=== PATIENT | male | born 1965 | race Caucasian/White ===

== ENCOUNTER 2016-07-28 14:54 | Emergency (ER) | payer MEDICAID ==
[2016-07-28] MEDS ORDERED: NS 1,000 ML IV ONE (15:31)
--- NOTE | 2016-07-28 15:33 | EDPHY ---
H & P Stated Complaint: uncontrollable blood sugars, cramping, numbness in toes Time Seen by Provider: 07/28/16 15:18 HPI/ROS: CHIEF COMPLAINT: Low sugar HISTORY OF PRESENT ILLNESS: Patient is a 50-year-old man with a history of diabetes type 2 who takes metformin who recently moved to [place]. He states that his sugars have been high lately in the 400s. He decided to take a dose of his mom's insulin this morning. He states that he has had trouble with high sugar since he had pancreatitis 2 years ago. He has not followed up with his doctor. He is supposed to be taking glipizide as well has a cholesterol medication but does not. He states that at work he became very grumpy and his coworkers told him to check his sugar. He used his last test strip and found that his blood sugar was 40. He ate a piece of cake and then came to the emergency department. He denies nausea or abdominal pain. He has a mild headache and states that he has cramping in his feet. REVIEW OF SYSTEMS: Constitutional: See HPI EENTM: denies: blurred vision, double vision, nose congestion Respiratory: denies: cough, shortness of breath Cardiac: denies: chest pain, irregular heart rate, lightheadedness, palpitations Gastrointestinal/Abdominal: denies: abdominal pain, diarrhea, nausea, vomiting, blood streaked stools Genitourinary: denies: dysuria, frequency, hematuria, pain Musculoskeletal: denies: joint pain, muscle pain Skin: denies: lesions, rash, jaundice, bruising Neurological: denies: headache, numbness, paresthesia, tingling, dizziness, weakness Hematologic/Lymphatic: denies: blood clots, easy bleeding, easy bruising Immunologic/allergic: denies: HIV/AIDS, transplant EXAM: GENERAL: Well-appearing, well-nourished and in no acute distress. HEAD: Atraumatic, normocephalic. EYES: Pupils equal round and reactive to light, extraocular movements intact, sclera anicteric, conjunctiva are normal. ENT: TMs normal, nares patent, oropharynx clear without exudates. Moist mucous membranes. NECK: Normal range of motion, supple without lymphadenopathy or JVD. LUNGS: Breath sounds clear to auscultation bilaterally and equal. No wheezes rales or rhonchi. HEART: Regular rate and rhythm without murmurs, rubs or gallops. ABDOMEN: Soft, nontender, normoactive bowel sounds. No guarding, no rebound. No masses appreciated. BACK: No CVA tenderness, no spinal tenderness, step-offs or deformities EXTREMITIES: Normal range of motion, no pitting or edema. No clubbing or cyanosis. NEUROLOGICAL: Cranial nerves II through XII grossly intact. Normal speech, normal gait. 5/5 strength, normal movement in all extremities, normal sensation PSYCH: Normal mood, normal affect. SKIN: Warm, dry, normal turgor, no visible rashes or lesions. Source: Patient Exam Limitations: No limitations - Personal History Current Tetanus Diphtheria and Acellular Pertussis (TDAP): No - Medical/Surgical History Hx Asthma: No Hx Chronic Respiratory Disease: No Hx Diabetes: Yes Hx Cardiac Disease: No Hx Renal Disease: No Hx Cirrhosis: No Hx Alcoholism: No Hx HIV/AIDS: No Hx Splenectomy or Spleen Trauma: No Other PMH: diabetes, pancreatitis, CHI 1993 - Family History Significant Family History: No pertinent family hx - Social History Smoking Status: Former smoker Alcohol Use: Sober Drug Use: None Constitutional: Initial Vital Signs Temperature (C) 36.8 C 07/28/16 14:56 Heart Rate 82 07/28/16 14:56 Respiratory Rate 18 07/28/16 14:56 Blood Pressure 125/86 H 07/28/16 14:56 O2 Sat (%) 94 07/28/16 14:56 O2 Delivery Mode Room Air Allergies/Adverse Reactions: No Known Allergies Allergy (Unverified 07/28/16 14:57) Home Medications: Medication Instructions Recorded Blood Sugar Diagnostic [Accu-Chek 1 each MC TID #120 strip 07/28/16 Guide Test Strip] GLIPIZIDE 07/28/16 metFORMIN HCL 07/28/16 Medical Decision Making ED Course/Re-evaluation: 5:00 p.m. the patient is feeling much better after hydration. His electrolytes look good. His glucose is slightly elevated. I will refer him to a retanned leather roller here to help evaluate whether he needs to be on insulin or oral anti-hyperglycemic. The patient understands and agrees with this plan. He is requesting a prescription for test strips. Differential Diagnosis: Partial list of the Differential diagnosis considered include but were not limited to; diabetes, hyperglycemia, hypoglycemia, dehydration, accidental overdose and although unlikely based on the history and physical exam, I also considered electrolyte abnormality, infection. I discussed these differential diagnoses and the plan with the patient as well as the usual and expected course. The patient understands that the diagnosis is provisional and that in medicine we are not always correct and that further workup is often warranted. Usual and customary warnings were given. All of the patient's questions were answered. The patient was instructed to return to the emergency department should the symptoms at all worsen or return, otherwise to followup with the physician as we discussed. - Data Points Laboratory Results: Laboratory Results 07/28/16 15:45 07/28/16 15:31 07/28/16 07/28/16 15:45 15:31 WBC 9.00 10^3/uL 10^3/uL (3.80-9.50) RBC 4.95 10^6/uL 10^6/uL (4.40-6.38) Hgb 15.1 g/dL g/dL (13.7-17.5) Hct 43.1 % % (40.0-51.0) MCV 87.1 fL fL (81.5-99.8) MCH 30.5 pg pg (27.9-34.1) MCHC 35.0 g/dL g/dL (32.4-36.7) RDW 12.8 % % (11.5-15.2) Plt Count 255 10^3/uL 10^3/uL (150-400) MPV 9.3 fL fL (8.7-11.7) Neut % (Auto) 53.3 % % (39.3-74.2) Lymph % (Auto) 37.4 % % (15.0-45.0) [place] % (Auto) 6.7 % % (4.5-13.0) Eos % (Auto) 1.4 % % (0.6-7.6) Baso % (Auto) 0.6 % % (0.3-1.7) Nucleat RBC Rel Count 0.0 % % (0.0-0.2) Absolute Neuts (auto) 4.80 10^3/uL 10^3/uL (1.70-6.50) Absolute Lymphs (auto) 3.37 10^3/uL H 10^3/uL (1.00-3.00) Absolute Monos (auto) 0.60 10^3/uL 10^3/uL (0.30-0.80) Absolute Eos (auto) 0.13 10^3/uL 10^3/uL (0.03-0.40) Absolute Basos (auto) 0.05 10^3/uL 10^3/uL (0.02-0.10) Absolute Nucleated RBC 0.00 10^3/uL 10^3/uL (0-0.01) Immature Gran % 0.6 % % (0.0-1.1) Immature Gran # 0.05 10^3/uL 10^3/uL (0.00-0.10) Sodium 140 mEq/L mEq/L (134-144) Potassium 4.0 mEq/L mEq/L (3.5-5.2) Chloride 106 mEq/L mEq/L (97-110) Carbon Dioxide 18 mEq/l L mEq/l (22-31) Anion Gap 16 mEq/L mEq/L (8-16) BUN 17 mg/dL mg/dL (7-23) Creatinine 0.7 mg/dL mg/dL (0.7-1.3) Estimated GFR > 60 Glucose 226 mg/dL H mg/dL (70-100) Calcium 9.7 mg/dL mg/dL (8.5-10.4) Magnesium 1.7 mg/dL mg/dL (1.6-2.3) Medications Given: Discontinued Medications Sodium Chloride (Ns) 1,000 mls @ 0 mls/hr IV ONCE ONE; Wide Open PRN Reason: Protocol Stop: 07/28/16 15:32 Last Admin: 07/28/16 15:55 Dose: 1,000 mls Departure - Departure Disposition: Home, Routine, Self-Care Clinical Impression: Hypoglycemia Condition: Fair Instructions: Hypoglycemia in a Person with Diabetes (ED) Referrals: NONE *PRIMARY CARE P,. [Primary Care Provider] - As per Instructions Sana Escamilla MD [Medical Doctor] - As per Instructions Prescriptions: Blood Sugar Diagnostic [Accu-Chek Guide Test Strip] 1 each MC TID #120 strip
[2016-07-28 15:47] LABS: % IMMATURE GRANULYOCYTES 0.6 % (0.0-1.1); ABSOLUTE IMMATURE GRANULOCYTES 0.05 10^3/uL (0.00-0.10); ADD DIFF? NO; ADD MORPH? NO; ADD SCAN? NO; ATYPICAL LYMPHOCYTE FLAG 10 (0-99); FRAGMENT RBC FLAG 0 (0-99); HEMATOCRIT 43.1 % (40.0-51.0); HEMOGLOBIN 15.1 g/dL (13.7-17.5); LEFT SHIFT FLG 0 (0-99); LIPEMIA HEMOLYSIS FLAG 90 (0-99); MEAN CELL HEMOGLOBIN 30.5 pg (27.9-34.1); MEAN CELL VOLUME 87.1 fL (81.5-99.8); MEAN PLATELET VOLUME 9.3 fL (8.7-11.7); PLATELET CLUMPS FLAG 10 (0-99); PLATELET COUNT 255 10^3/uL (150-400); RED BLOOD CELL COUNT 4.95 10^6/uL (4.40-6.38); RED CELL DISTRIBUTION WIDTH 12.8 % (11.5-15.2)
[2016-07-28 16:46] LABS: ANION GAP 16 mEq/L (8-16); CALCIUM 9.7 mg/dL (8.5-10.4); CARBON DIOXIDE 18 mEq/l (22-31); CHLORIDE 106 mEq/L (97-110); CREATININE 0.7 mg/dL (0.7-1.3); GLOMERULAR FILTRATION RATE > 60; GLUCOSE 226 mg/dL (70-100); MAGNESIUM 1.7 mg/dL (1.6-2.3); SODIUM 140 mEq/L (134-144)
[2016-07-28 17:50] VITALS: BP 111/72; PULSE 74; RESP 20; TEMP 98.1; O2SAT 96
== END 2016-07-28 17:50 | disposition home or self-care (01) ==
DX: E11.649 Type 2 diabetes mellitus with hypoglycemia without coma (principal); Z79.84 Long term (current) use of oral hypoglycemic drugs; Z87.891 Personal history of nicotine dependence

== ENCOUNTER 2016-08-07 22:55 | Emergency (ER) | payer MEDICAID ==
[2016-08-07] MEDS ORDERED: NS 2,000 ML IV ONE (23:00)
--- NOTE | 2016-08-07 23:04 | EDPHY ---
H & P HPI/ROS: HPI CHIEF COMPLAINT: Nausea, vomiting, new medication gabapentin 2 days ago HISTORY OF PRESENT ILLNESS: This patient very pleasant 50-year-old male, significant past medical history for insulin-dependent diabetes, diabetic neuropathy, pancreatitis, he presents emergency room by EMS for onset of nausea multiple episodes of vomiting. Describes vomiting is nonbloody, nonbilious. He tells me that around 1:00 p.m. he developed onset of nausea. Multiple episodes of vomiting today. 6-7 separate episodes. He denies chest pain or shortness of breath. Denies significant abdominal pain. He tells me that he thinks the nausea vomiting from a new medication he started gabapentin 2 days ago. He denies fever. Denies back pain or urinary symptoms. Patient did receive 8 mg IV Zofran prior to arrival. Nausea improved since arriving by EMS. Past Medical History: Insulin-dependent diabetes, diabetic neuropathy, pancreatitis. Past Surgical History: Denies recent surgical history Social History: Smokes marijuana, denies tobacco, drugs Family History: Noncontributory ROS REVIEW OF SYSTEMS: A comprehensive 10 point review of systems is otherwise negative aside from elements mentioned in the history of present illness. Exam Constitutional appears well nontoxic go triage nursing summary reviewed, vital signs reviewed, awake/alert. Eyes normal conjunctivae and sclera, EOMI, PERRLA. HENT normal inspection, atraumatic, moist mucus membranes, no epistaxis, neck supple/ no meningismus, no raccoon eyes. Respiratory clear to auscultation bilaterally, normal breath sounds, no respiratory distress, no wheezing. Cardiovascular rate normal, regular rhythm, no murmur, no edema, distal pulses normal. Gastrointestinal soft, non-tender, no rebound, no guarding, normal bowel sounds, no distension, no pulsatile mass. Genitourinary no CVA tenderness. Musculoskeletal no midline vertebral tenderness, full range of motion, no calf swelling, no tenderness of extremities, no meningismus, good pulses, neurovascularly intact. Skin pink, warm, & dry, no rash, skin atraumatic. Neurologic awake, alert and oriented x 3, AAOx3, moves all 4 extremities equally, motor intact, sensory intact, CN II-XII intact, normal cerebellar, normal vision, normal speech. Psychiatric normal mood/affect. Heme/Lymph/Immune no lymphadenopathy. Differential diagnosis includes but is not limited to and in no particular order : Bowel obstruction, appendicitis, gallbladder disease, diverticulitis, colitis , enteritis, perforated viscus, gastritis, GERD, esophagitis, urinary tract infection, pyelonephritis, kidney stones Medical Decision Making: Plan for this patient IV established, IV fluid bolus, check abdominal blood work, IV hydration, EKG troponin. Re-evaluate. Re-evaluation: EKG interpretation by me on record in [employer] system. Impression time of EKG 2312, sinus rhythm rate of 76 I do not appreciate acute ischemic changes specifically no ST elevation, ST depression, T-wave abnormalities or significant prolonged intervals. CT scan of the abdomen pelvis with IV contrast. The results of the study are shows fluid-filled small bowel and large bowel consistent with enteritis. Otherwise no acute inflammatory process. Specifically no acute appendicitis. The study was read by Dr. Jha I viewed the images myself on the PACS system [id number]: Re-examination this time patient is resting comfortably no vomiting. Affected was sleeping. Re-examination abdomen is soft nontender no guarding or peritoneal signs. He has not had any vomiting here. CT scan shows enteritis. Repeat lactic after 2 L is improving but still elevated. He received 1/3 L fluid will repeat his lactic and CBC. Do feel that he is well enough to go home is not vomiting he does not have fever. His white count elevated is due to reactive due to vomiting. His CT scan shows no acute inflammatory process except for enteritis. Allowed to go home bland diet next 24 hours. Return emergency room if there is worsening abdominal pain fever vomiting he understands. [id number]: Re-evaluation at this time patient resting comfortably no acute distress. Abdomen soft. No vomiting. Blood work is reassuring nail white count is trending down after IV fluids. Lactic acid normalizing. Received 3 L of fluid. Well-hydrated this time. Not vomiting sleeping most time emergency room very comfortable. Okay to discharge. Has enteritis on CT scan. Source: Patient, EMS - Medical/Surgical History Hx Asthma: No Hx Chronic Respiratory Disease: No Hx Diabetes: Yes Hx Cardiac Disease: No Hx Renal Disease: No Hx Cirrhosis: No Hx Alcoholism: No Hx HIV/AIDS: No Hx Splenectomy or Spleen Trauma: No Other PMH: diabetes, pancreatitis, CHI 1993 - Social History Smoking Status: Former smoker Constitutional: Initial Vital Signs Temperature (C) 36.6 C 08/07/16 23:14 Heart Rate 78 08/07/16 23:14 Respiratory Rate 18 08/07/16 23:14 Blood Pressure 114/75 08/07/16 23:14 O2 Sat (%) 99 08/07/16 23:14 O2 Delivery Mode Room Air Allergies/Adverse Reactions: No Known Allergies Allergy (Unverified 07/28/16 14:57) Home Medications: Medication Instructions Recorded Blood Sugar Diagnostic [Accu-Chek 1 each MC TID #120 strip 07/28/16 Guide Test Strip] GLIPIZIDE 07/28/16 metFORMIN HCL 07/28/16 GABAPENTIN 08/07/16 Medical Decision Making - Diagnostics Imaging Results: Imaging Impressions Abdomen CT 08/07/16 23:21 Impression: 1. Fluid-filled colon and small bowel, which can be seen with enteritis. 2. Mild apparent wall thickening of the rectum, most likely related to underdistention. If clinical suspicion warrants, consider direct visualization. 3. Additional findings as above. Findings discussed with Terrence Thakkar MD 08/07/2016 at 23:57. - Data Points Laboratory Results: Laboratory Results 08/08/16 02:08 08/07/16 23:05 08/08/16 08/08/16 08/08/16 02:08 02:08 01:55 WBC 16.69 10^3/uL H D 10^3/uL (3.80-9.50) RBC 4.58 10^6/uL 10^6/uL (4.40-6.38) Hgb 13.9 g/dL g/dL (13.7-17.5) Hct 40.5 % D % (40.0-51.0) MCV 88.4 fL fL (81.5-99.8) MCH 30.3 pg pg (27.9-34.1) MCHC 34.3 g/dL g/dL (32.4-36.7) RDW 13.1 % % (11.5-15.2) Plt Count 175 10^3/uL D 10^3/uL (150-400) MPV 9.3 fL fL (8.7-11.7) Neut % (Auto) 84.3 % H % (39.3-74.2) Lymph % (Auto) 9.1 % L % (15.0-45.0) [place] % (Auto) 5.2 % % (4.5-13.0) Eos % (Auto) 0.5 % L % (0.6-7.6) Baso % (Auto) 0.2 % L % (0.3-1.7) Nucleat RBC Rel Count 0.0 % % (0.0-0.2) Absolute Neuts (auto) 14.07 10^3/uL H 10^3/uL (1.70-6.50) Absolute Lymphs (auto) 1.52 10^3/uL 10^3/uL (1.00-3.00) Absolute Monos (auto) 0.86 10^3/uL H 10^3/uL (0.30-0.80) Absolute Eos (auto) 0.08 10^3/uL 10^3/uL (0.03-0.40) Absolute Basos (auto) 0.04 10^3/uL 10^3/uL (0.02-0.10) Absolute Nucleated RBC 0.00 10^3/uL 10^3/uL (0-0.01) Immature Gran % 0.7 % % (0.0-1.1) Immature Gran # 0.12 10^3/uL H 10^3/uL (0.00-0.10) VBG Lactic Acid 2.2 mmol/L H D mmol/L (0.7-2.1) Sodium Potassium Chloride Carbon Dioxide Anion Gap BUN Creatinine Estimated GFR Glucose Calcium Total Bilirubin Conjugated Bilirubin Unconjugated Bilirubin AST ALT Alkaline Phosphatase Troponin I Total Protein Albumin Lipase Urine Color YELLOW Urine Appearance CLEAR Urine pH 5.0 (5.0-7.5) Ur Specific [place] > 1.035 H (1.002-1.030) Urine Protein NEGATIVE (NEGATIVE) Urine Ketones NEGATIVE (NEGATIVE) Urine Blood NEGATIVE (NEGATIVE) Urine Nitrate NEGATIVE (NEGATIVE) Urine Bilirubin NEGATIVE (NEGATIVE) Urine Urobilinogen NEGATIVE EU EU (0.2-1.0) Ur Leukocyte Esterase NEGATIVE (NEGATIVE) Urine Glucose NEGATIVE (NEGATIVE) 08/08/16 08/07/16 08/07/16 00:00 23:05 23:05 WBC 24.56 10^3/uL H 10^3/uL (3.80-9.50) RBC 6.05 10^6/uL 10^6/uL (4.40-6.38) Hgb 18.4 g/dL H g/dL (13.7-17.5) Hct 52.9 % H % (40.0-51.0) MCV 87.4 fL fL (81.5-99.8) MCH 30.4 pg pg (27.9-34.1) MCHC 34.8 g/dL g/dL (32.4-36.7) RDW 13.0 % % (11.5-15.2) Plt Count 252 10^3/uL 10^3/uL (150-400) MPV 10.1 fL fL (8.7-11.7) Neut % (Auto) 77.2 % H % (39.3-74.2) Lymph % (Auto) 14.3 % L % (15.0-45.0) [place] % (Auto) 6.8 % % (4.5-13.0) Eos % (Auto) 0.4 % L % (0.6-7.6) Baso % (Auto) 0.4 % % (0.3-1.7) Nucleat RBC Rel Count 0.0 % % (0.0-0.2) Absolute Neuts (auto) 18.99 10^3/uL H 10^3/uL (1.70-6.50) Absolute Lymphs (auto) 3.51 10^3/uL H 10^3/uL (1.00-3.00) Absolute Monos (auto) 1.66 10^3/uL H 10^3/uL (0.30-0.80) Absolute Eos (auto) 0.09 10^3/uL 10^3/uL (0.03-0.40) Absolute Basos (auto) 0.09 10^3/uL 10^3/uL (0.02-0.10) Absolute Nucleated RBC 0.00 10^3/uL 10^3/uL (0-0.01) Immature Gran % 0.9 % % (0.0-1.1) Immature Gran # 0.22 10^3/uL H 10^3/uL (0.00-0.10) VBG Lactic Acid 3.1 mmol/L H mmol/L (0.7-2.1) Sodium 141 mEq/L mEq/L (134-144) Potassium 3.6 mEq/L mEq/L (3.5-5.2) Chloride 106 mEq/L mEq/L (97-110) Carbon Dioxide 16 mEq/l L mEq/l (22-31) Anion Gap 19 mEq/L H mEq/L (8-16) BUN 16 mg/dL mg/dL (7-23) Creatinine 0.7 mg/dL mg/dL (0.7-1.3) Estimated GFR > 60 Glucose 145 mg/dL H mg/dL (70-100) Calcium 9.5 mg/dL mg/dL (8.5-10.4) Total Bilirubin 1.2 mg/dL mg/dL (0.1-1.4) Conjugated Bilirubin 0.5 mg/dL mg/dL (0.0-0.5) Unconjugated Bilirubin 0.7 mg/dL mg/dL (0.0-1.1) AST 17 IU/L IU/L (17-59) ALT 28 IU/L IU/L (21-72) Alkaline Phosphatase 69 IU/L IU/L (38-126) Troponin I < 0.012 ng/mL ng/mL (0-0.034) Total Protein 7.4 g/dL g/dL (6.3-8.2) Albumin 4.8 g/dL g/dL (3.5-5.0) Lipase 85.0 IU/L IU/L (23-300) Urine Color Urine Appearance Urine pH Ur Specific [place] Urine Protein Urine Ketones Urine Blood Urine Nitrate Urine Bilirubin Urine Urobilinogen Ur Leukocyte Esterase Urine Glucose 08/07/16 23:05 WBC RBC Hgb Hct MCV MCH MCHC RDW Plt Count MPV Neut % (Auto) Lymph % (Auto) [place] % (Auto) Eos % (Auto) Baso % (Auto) Nucleat RBC Rel Count Absolute Neuts (auto) Absolute Lymphs (auto) Absolute Monos (auto) Absolute Eos (auto) Absolute Basos (auto) Absolute Nucleated RBC Immature Gran % Immature Gran # VBG Lactic Acid 3.7 mmol/L H mmol/L (0.7-2.1) Sodium Potassium Chloride Carbon Dioxide Anion Gap BUN Creatinine Estimated GFR Glucose Calcium Total Bilirubin Conjugated Bilirubin Unconjugated Bilirubin AST ALT Alkaline Phosphatase Troponin I Total Protein Albumin Lipase Urine Color Urine Appearance Urine pH Ur Specific [place] Urine Protein Urine Ketones Urine Blood Urine Nitrate Urine Bilirubin Urine Urobilinogen Ur Leukocyte Esterase Urine Glucose Medications Given: Discontinued Medications Sodium Chloride (Ns) 2,000 mls @ 0 mls/hr IV ONCE ONE; Wide Open PRN Reason: Protocol Stop: 08/07/16 23:01 Last Admin: 08/07/16 23:14 Dose: 2,000 mls Sodium Chloride (Ns) 1,000 mls @ 0 mls/hr IV ONCE ONE; Wide Open PRN Reason: Protocol Stop: 08/08/16 00:23 Last Admin: 08/08/16 00:24 Dose: 1,000 mls Departure - Departure Disposition: Home, Routine, Self-Care Clinical Impression: Enteritis Nausea and vomiting Qualifiers: Vomiting type: unspecified Vomiting Intractability: non-intractable Qualified Code(s): R11.2 - Nausea with vomiting, unspecified Condition: Good Instructions: Acute Nausea and Vomiting (ED) Additional Instructions: 1. [place] diet for the next 48 hours. 2. Return emergency room if you have any worsening symptoms questions or concerns includes high fever, vomiting Referrals: Patient,NotPresent [Unknown] - As per Instructions
--- NOTE | 2016-08-07 23:13 | CPEKG ---
Heart Rate: 76 RR Interval: 789 P-R Interval: 156 QRSD Interval: 98 QT Interval: 396 QTC Interval: 446 P [place]: 69 QRS [place]: 78 T Wave [place]: 18 EKG Severity - ABNORMAL ECG - EKG Impression: SINUS RHYTHM EKG Impression: ABNRM R PROG, CONSIDER ASMI OR LEAD PLACEMENT Electronically Signed By: Terrence Thakkar 08-Aug-2016 05:48:58
[2016-08-07 23:18] LABS: % IMMATURE GRANULYOCYTES 0.9 % (0.0-1.1); ABSOLUTE IMMATURE GRANULOCYTES 0.22 10^3/uL (0.00-0.10); ADD DIFF? NO; ADD MORPH? NO; ADD SCAN? NO; ATYPICAL LYMPHOCYTE FLAG 0 (0-99); FRAGMENT RBC FLAG 0 (0-99); HEMATOCRIT 52.9 % (40.0-51.0); HEMOGLOBIN 18.4 g/dL (13.7-17.5); LEFT SHIFT FLG 20 (0-99); LIPEMIA HEMOLYSIS FLAG 90 (0-99); MEAN CELL HEMOGLOBIN 30.4 pg (27.9-34.1); MEAN CELL HEMOGLOBIN CONCENTR. 34.8 g/dL (32.4-36.7); MEAN CELL VOLUME 87.4 fL (81.5-99.8); MEAN PLATELET VOLUME 10.1 fL (8.7-11.7); PLATELET CLUMPS FLAG 50 (0-99); PLATELET COUNT 252 10^3/uL (150-400); RED BLOOD CELL COUNT 6.05 10^6/uL (4.40-6.38)
[2016-08-07] MEDS ORDERED: IOPAMIDOL (ISOVUE-300) 100 ML BTL ONE (23:23)
[2016-08-07 23:31] LABS: ALANINE AMINOTRANSFERASE 28 IU/L (21-72); ALBUMIN 4.8 g/dL (3.5-5.0); ALKALINE PHOSPHATASE 69 IU/L (38-126); ANION GAP 19 mEq/L (8-16); ASPARTATE AMINOTRANSFERASE 17 IU/L (17-59); BILIRUBIN,TOTAL 1.2 mg/dL (0.1-1.4); BILIRUBIN-CONJUGATED 0.5 mg/dL (0.0-0.5); BILIRUBIN-UNCONJUGATED 0.7 mg/dL (0.0-1.1); CALCIUM 9.5 mg/dL (8.5-10.4); CARBON DIOXIDE 16 mEq/l (22-31); CHLORIDE 106 mEq/L (97-110); CREATININE 0.7 mg/dL (0.7-1.3); GLOMERULAR FILTRATION RATE > 60; GLUCOSE 145 mg/dL (70-100); POTASSIUM 3.6 mEq/L (3.5-5.2); SODIUM 141 mEq/L (134-144); TOTAL PROTEIN 7.4 g/dL (6.3-8.2)
[2016-08-07 23:42] LABS: TROPONIN I < 0.012 ng/mL (0-0.034)
[2016-08-08 00:04] VITALS: RESP 16
[2016-08-08] MEDS ORDERED: NS 1,000 ML IV ONE (00:22)
[2016-08-08 01:11] VITALS: O2SAT 97
[2016-08-08 02:25] LABS: % IMMATURE GRANULYOCYTES 0.7 % (0.0-1.1); ABSOLUTE IMMATURE GRANULOCYTES 0.12 10^3/uL (0.00-0.10); ADD DIFF? NO; ADD MORPH? NO; ADD SCAN? NO; ATYPICAL LYMPHOCYTE FLAG 0 (0-99); FRAGMENT RBC FLAG 0 (0-99); HEMATOCRIT 40.5 % (40.0-51.0); HEMOGLOBIN 13.9 g/dL (13.7-17.5); LEFT SHIFT FLG 20 (0-99); LIPEMIA HEMOLYSIS FLAG 90 (0-99); MEAN CELL HEMOGLOBIN 30.3 pg (27.9-34.1); MEAN CELL HEMOGLOBIN CONCENTR. 34.3 g/dL (32.4-36.7); MEAN CELL VOLUME 88.4 fL (81.5-99.8); MEAN PLATELET VOLUME 9.3 fL (8.7-11.7); PLATELET CLUMPS FLAG 0 (0-99); PLATELET COUNT 175 10^3/uL (150-400); RED BLOOD CELL COUNT 4.58 10^6/uL (4.40-6.38); RED CELL DISTRIBUTION WIDTH 13.1 % (11.5-15.2)
[2016-08-08 02:35] LABS: COLOR YELLOW; LEUKOCYTE ESTERASE,URINE NEGATIVE (NEGATIVE); NITRITE,URINE NEGATIVE (NEGATIVE)
[2016-08-08 03:20] VITALS: BP 124/71; PULSE 71; TEMP 98.2
== END 2016-08-08 03:20 | disposition home or self-care (01) ==
LOC: EDUNIT#
DX: K52.9 Noninfective gastroenteritis and colitis, unspecified (principal); E11.9 Type 2 diabetes mellitus without complications; Z87.891 Personal history of nicotine dependence; Z79.84 Long term (current) use of oral hypoglycemic drugs
CPT/HCPCS: Q9967

== ENCOUNTER → 2016-12-07 | Outpatient (CLI) | payer MEDICAID | LOC: CIMAGING 10:56 | PROVIDERS: ATTEND Family Medicine | DX: R07.89 Other chest pain (principal) | CPT/HCPCS: 71101-PO ==

== ENCOUNTER 2017-01-15 20:26 | Emergency (ER) | payer MEDICAID ==
[2017-01-15 20:31] VITALS: RESP 16; TEMP 98.4
--- NOTE | 2017-01-15 20:36 | EDPHY ---
HPI/HX/ROS/PE/MDM Narrative: CHIEF COMPLAINT: Syncope HPI: The patient is a 51 y/o male complaining of syncope after his blood sugar dropped to 136, 1 hour ago. This past weekend his BGL's were running high and went up to 483. He took insulin and was able to bring it down. This past weekend he felt shaky, slow, and has had difficulty concentrating. This morning his BGL was 300, which he again was able to bring down by taking insulin. At work he checked it again and it was up to 486. He took 20-25 units of insulin which dropped it down to 136, which is normal for him. However, after the BGL dropped his friends witnessed him passing out. He usually checks his BGL 3-6 times a day. He was on Metformin in the past, but has not taken it recently. Denies cold symptoms, fever, vomiting or other pertinent symptoms. REVIEW OF SYSTEMS: Aside from elements discussed in the HPI, a comprehensive 10-point review of systems was reviewed and is negative. PMH: Type 2 diabetes, pancreatitis, neuropathy SOCIAL HISTORY: Friend at bedside, lives in [place], works at [employer] PHYSICAL EXAM: General:Patient is alert, in no acute distress. ENT:Eyes are normal to inspection. ENT inspection normal. Neck: Normal inspection. Full range of motion. Respiratory:No respiratory distress. Breath sounds normal bilaterally. Cardiovascular: Regular rate and rhythm. Strong peripheral pulses. Normal cap refill. Abdomen:The abdomen is nontender to palpation. There are no peritoneal signs. There are normal bowel sounds. Back: Normal to inspection. No tenderness to palpation. Skin: Normal color. No rash. Warm and dry. Extremities: Normal appearance. Full range of motion. Neuro: Oriented x3. Normal motor function. Normal sensory function. ED Course: 2034: Patient's BGL is 83 2108: EKG was ordered and interpreted by myself as sinus rhythm with a rate of 70. Please see Hotreader system for official reading. 2209: Reassessed patient, he is feeling better and would like to go home. Return precautions provided; patient is comfortable with this plan. MDM: This patient presents with an apparent syncopal episode after injecting extra insulin secondary to recent hyperglycemia. He is now asymptomatic and his BGL has remained normal on several measurements. Workup is otherwise negative. It appears his syncopal episode was most likely secondary to the insulin. He would like to go home. I think cardiac etiology or CVA very unlikely. No evidence for PE>. We discussed strict return precautions and patient has plans to follow-up with PCP. - Data Points Imaging: I viewed and interpreted images myself Laboratory Results: Laboratory Results 01/15/17 20:35 01/15/17 20:35 01/15/17 01/15/17 01/15/17 21:54 20:37 20:35 WBC RBC Hgb POC Hgb 15.0 gm/dL gm/dL (13.7-17.5) Hct POC Hct 44 % % (40-51) MCV MCH MCHC RDW Plt Count MPV Neut % (Auto) Lymph % (Auto) [place] % (Auto) Eos % (Auto) Baso % (Auto) Nucleat RBC Rel Count Absolute Neuts (auto) Absolute Lymphs (auto) Absolute Monos (auto) Absolute Eos (auto) Absolute Basos (auto) Absolute Nucleated RBC Immature Gran % Immature Gran # POC Sodium 144 mEq/L mEq/L (134-144) Sodium 142 mEq/L mEq/L (134-144) POC Potassium 3.6 mEq/L mEq/L (3.3-5.0) Potassium 3.8 mEq/L mEq/L (3.5-5.2) POC Chloride 104 mEq/L mEq/L (97-110) Chloride 105 mEq/L mEq/L (97-110) Carbon Dioxide 24 mEq/l mEq/l (22-31) Anion Gap 13 mEq/L mEq/L (8-16) POC BUN 19 mg/dL mg/dL (7-23) BUN 19 mg/dL mg/dL (7-23) Creatinine 0.9 mg/dL mg/dL (0.7-1.3) POC Creatinine 1.0 mg/dL mg/dL (0.7-1.3) Estimated GFR > 60 Glucose 83 mg/dL mg/dL (70-100) POC Glucose 96 mg/dL mg/dL 83 mg/dL mg/dL (70-100) (70-100) Calcium 9.7 mg/dL mg/dL (8.5-10.4) 01/15/17 20:35 WBC 10.28 10^3/uL H 10^3/uL (3.80-9.50) RBC 4.91 10^6/uL 10^6/uL (4.40-6.38) Hgb 15.3 g/dL g/dL (13.7-17.5) POC Hgb Hct 42.5 % % (40.0-51.0) POC Hct MCV 86.6 fL fL (81.5-99.8) MCH 31.2 pg pg (27.9-34.1) MCHC 36.0 g/dL g/dL (32.4-36.7) RDW 12.1 % % (11.5-15.2) Plt Count 195 10^3/uL 10^3/uL (150-400) MPV 8.4 fL L fL (8.7-11.7) Neut % (Auto) 60.7 % % (39.3-74.2) Lymph % (Auto) 29.0 % % (15.0-45.0) [place] % (Auto) 7.4 % % (4.5-13.0) Eos % (Auto) 1.8 % % (0.6-7.6) Baso % (Auto) 0.4 % % (0.3-1.7) Nucleat RBC Rel Count 0.0 % % (0.0-0.2) Absolute Neuts (auto) 6.24 10^3/uL 10^3/uL (1.70-6.50) Absolute Lymphs (auto) 2.98 10^3/uL 10^3/uL (1.00-3.00) Absolute Monos (auto) 0.76 10^3/uL 10^3/uL (0.30-0.80) Absolute Eos (auto) 0.19 10^3/uL 10^3/uL (0.03-0.40) Absolute Basos (auto) 0.04 10^3/uL 10^3/uL (0.02-0.10) Absolute Nucleated RBC 0.00 10^3/uL 10^3/uL (0-0.01) Immature Gran % 0.7 % % (0.0-1.1) Immature Gran # 0.07 10^3/uL 10^3/uL (0.00-0.10) POC Sodium Sodium POC Potassium Potassium POC Chloride Chloride Carbon Dioxide Anion Gap POC BUN BUN Creatinine POC Creatinine Estimated GFR Glucose POC Glucose Calcium Medications Given: Discontinued Medications Sodium Chloride (Ns) 1,000 mls @ 0 mls/hr IV EDNOW ONE; Wide Open PRN Reason: Protocol Stop: 01/15/17 20:38 Last Admin: 01/15/17 21:10 Dose: 1,000 mls Ibuprofen (Motrin) 600 mg PO EDNOW ONE Stop: 01/15/17 21:19 Last Admin: 01/15/17 21:19 Dose: 600 mg Point of Care Test Results: 01/15/17 01/15/17 20:37 21:54 POC Sodium 144 POC Potassium 3.6 POC Chloride 104 POC BUN 19 POC Creatinine 1.0 POC Glucose 83 96 General Time Seen by Provider: 01/15/17 20:33 Initial Vital Signs: Initial Vital Signs Temperature (C) 36.9 C 01/15/17 20:29 Heart Rate 88 01/15/17 20:29 Respiratory Rate 16 01/15/17 20:29 Blood Pressure 126/93 H 01/15/17 20:29 O2 Sat (%) 95 01/15/17 20:29 O2 Delivery Mode Room Air Allergies/Adverse Reactions: No Known Allergies Allergy (Unverified 07/28/16 14:57) Home Medications: Medication Instructions Recorded Blood Sugar Diagnostic [Accu-Chek 1 each MC TID #120 strip 07/28/16 Guide Test Strip] GLIPIZIDE 07/28/16 metFORMIN HCL 07/28/16 GABAPENTIN 08/07/16 Departure - Departure Disposition: Home, Routine, Self-Care Clinical Impression: Syncope, Diabetes Condition: Good Instructions: Syncope (ED), Type 2 Diabetes Management for Adolescents (ED) Additional Instructions: Follow-up with your primary doctor within 72 hours. Return to the Emergency Department for fever, chest pain, shortness of breath, increasing pain or other worsening of condition. Referrals: Andi Meadows DO [Primary Care Provider] - As per Instructions Report Scribed for: Florencio Ramos Report Scribed by: Mami Gutierrez Date of Report: 01/15/17 Time of Report: 20:35 Physician Review and Approval Statement: Portions of this note were transcribed by an ED scribe. I personally performed the history, physical exam, and medical decision making; and confirm the accuracy of the information in the transcribed note.
[2017-01-15] MEDS ORDERED: NS 1,000 ML IV ONE (20:37)
[2017-01-15 20:48] LABS: % IMMATURE GRANULYOCYTES 0.7 % (0.0-1.1); ABSOLUTE IMMATURE GRANULOCYTES 0.07 10^3/uL (0.00-0.10); ADD DIFF? NO; ADD MORPH? NO; ADD SCAN? NO; ATYPICAL LYMPHOCYTE FLAG 10 (0-99); FRAGMENT RBC FLAG 0 (0-99); HEMATOCRIT 42.5 % (40.0-51.0); HEMOGLOBIN 15.3 g/dL (13.7-17.5); LEFT SHIFT FLG 0 (0-99); LIPEMIA HEMOLYSIS FLAG 90 (0-99); MEAN CELL HEMOGLOBIN 31.2 pg (27.9-34.1); MEAN CELL VOLUME 86.6 fL (81.5-99.8); MEAN PLATELET VOLUME 8.4 fL (8.7-11.7); PLATELET CLUMPS FLAG 0 (0-99); PLATELET COUNT 195 10^3/uL (150-400); RED BLOOD CELL COUNT 4.91 10^6/uL (4.40-6.38); RED CELL DISTRIBUTION WIDTH 12.1 % (11.5-15.2)
[2017-01-15 21:00] LABS: ANION GAP 13 mEq/L (8-16); CALCIUM 9.7 mg/dL (8.5-10.4); CARBON DIOXIDE 24 mEq/l (22-31); CHLORIDE 105 mEq/L (97-110); CREATININE 0.9 mg/dL (0.7-1.3); GLOMERULAR FILTRATION RATE > 60; GLUCOSE 83 mg/dL (70-100); POTASSIUM 3.8 mEq/L (3.5-5.2); SODIUM 142 mEq/L (134-144)
[2017-01-15] MEDS ORDERED: IBUPROFEN 600 MG TAB PO ONE (21:18)
[2017-01-15 22:18] VITALS: BP 109/55; PULSE 75; O2SAT 99
--- NOTE | 2017-01-18 07:39 | CPEKG ---
Heart Rate: 70 RR Interval: 857 P-R Interval: 160 QRSD Interval: 102 QT Interval: 392 QTC Interval: 423 P [place]: 68 QRS [place]: 73 T Wave [place]: 41 EKG Severity - NORMAL ECG - EKG Impression: SINUS RHYTHM Electronically Signed By: Alvarez Higgins 18-Jan-2017 11:13:40
== END 2017-01-15 22:23 | disposition home or self-care (01) ==
PROC: 3E0337Z Introduction of Electrolytic and Water Balance Substance into Peripheral Vein, Percutaneous Approach (ICD-10-PCS; principal; 2017-01-15)
DX: R55 Syncope and collapse (principal); E11.9 Type 2 diabetes mellitus without complications; E86.9 Volume depletion, unspecified; Z79.84 Long term (current) use of oral hypoglycemic drugs
CPT/HCPCS: 82947-QW

== ENCOUNTER → 2017-02-23 | Outpatient (CLI) | payer MEDICAID | LOC: CIMAGING 16:49 | PROVIDERS: ATTEND Family Medicine | DX: R20.2 Paresthesia of skin (principal); R20.0 Anesthesia of skin; R93.8 Abnormal findings on diagnostic imaging of other specified body structures | CPT/HCPCS: 72100-PO; 72200-PO ==

== ENCOUNTER 2017-08-07 16:03 | Emergency (ER) | payer MEDICAID, OTHER ==
[2017-08-07] MEDS ORDERED: NS 1,000 ML IV ONE (16:14)
--- NOTE | 2017-08-07 16:18 | EDPHY ---
H & P Time Seen by Provider: 08/07/17 16:08 HPI/ROS: CHIEF COMPLAINT: Shaky, weak HISTORY OF PRESENT ILLNESS: The patient is a 51-year-old type 2 diabetic comes to the emergency department complaining that he feels shaky and weak. His symptoms began yesterday. He has not had a fever. He was concerned about his blood sugar. He states that this afternoon it was 400. He injected himself with 5 mcg of his [place] about 30 min ago. He then came to the emergency department. He denies vomiting or headaches. He denies abdominal pain or diarrhea. States he has been eating well. He denies new medications or routine. No recent infections. REVIEW OF SYSTEMS: Constitutional: See HPI denies: chills, fever, recent illness, recent injury EENTM: denies: blurred vision, double vision, nose congestion Respiratory: denies: cough, shortness of breath Cardiac: denies: chest pain, irregular heart rate, lightheadedness, palpitations Gastrointestinal/Abdominal: denies: abdominal pain, diarrhea, nausea, vomiting, blood streaked stools Genitourinary: denies: dysuria, frequency, hematuria, pain Musculoskeletal: denies: joint pain, muscle pain Skin: denies: lesions, rash, jaundice, bruising Neurological: denies: headache, numbness, paresthesia, tingling, dizziness, weakness Hematologic/Lymphatic: denies: blood clots, easy bleeding, easy bruising Immunologic/allergic: denies: HIV/AIDS, transplant EXAM: GENERAL: Anxious, well-nourished and in no acute distress. HEAD: Atraumatic, normocephalic. EYES: Pupils equal round and reactive to light, extraocular movements intact, sclera anicteric, conjunctiva are normal. ENT: TMs normal, nares patent, oropharynx clear without exudates. Moist mucous membranes. NECK: Normal range of motion, supple without lymphadenopathy or JVD. LUNGS: Breath sounds clear to auscultation bilaterally and equal. No wheezes rales or rhonchi. HEART: Regular rate and rhythm without murmurs, rubs or gallops. ABDOMEN: Soft, nontender, normoactive bowel sounds. No guarding, no rebound. No masses appreciated. BACK: No CVA tenderness, no spinal tenderness, step-offs or deformities EXTREMITIES: Normal range of motion, no pitting or edema. No clubbing or cyanosis. NEUROLOGICAL: Slightly shaky with movement but not at rest. Cranial nerves II through XII grossly intact. Normal speech, normal gait. 5/5 strength, normal movement in all extremities, normal sensation PSYCH: Normal mood, normal affect. SKIN: Warm, dry, normal turgor, no visible rashes or lesions. Source: Patient Exam Limitations: No limitations - Medical/Surgical History Hx Asthma: No Hx Chronic Respiratory Disease: No Hx Diabetes: Yes Hx Cardiac Disease: No Hx Renal Disease: No Hx Cirrhosis: No Hx Alcoholism: No Hx HIV/AIDS: No Hx Splenectomy or Spleen Trauma: No Other PMH: DM type2 diabetes, pancreatitis, CHI 1993 - Family History Significant Family History: No pertinent family hx - Social History Smoking Status: Former smoker Alcohol Use: Sober Drug Use: None Constitutional: Initial Vital Signs Temperature (C) 36.6 C 08/07/17 16:13 Heart Rate 66 08/07/17 16:13 Respiratory Rate 18 08/07/17 16:13 Blood Pressure 142/88 H 08/07/17 16:13 O2 Sat (%) 96 08/07/17 16:13 O2 Delivery Mode Room Air Allergies/Adverse Reactions: No Known Allergies Allergy (Unverified 07/28/16 14:57) Home Medications: Medication Instructions Recorded Blood Sugar Diagnostic [Accu-Chek 1 each MC TID #120 strip 07/28/16 Guide Test Strip] GLIPIZIDE 07/28/16 metFORMIN HCL 07/28/16 GABAPENTIN 08/07/16 Medical Decision Making - Diagnostics EKG Interpretation: An EKG obtained and was read and documented in trace view. Please see trace view for full reading and report. Sinus rhythm no acute ischemic changes Imaging Results: Imaging Impressions Chest X-Ray 08/07/17 17:10 Impression: Stable negative chest. ED Course/Re-evaluation: Patient is not in DKA. He is slightly alkalotic which appears to be respiratory likely from hyperventilating and anxiety. He is now much more calm. He is receiving IV fluids and will continue to observe. 5:10 p.m. patient states that he is feeling much better but now tells me that he has been having intermittent chest pressure for the last several weeks. He is a smoker. No recent travel. No leg pain or swelling. I will add on a troponin, EKG and D-dimer as well as x-ray. 6:15 p.m. the patient's troponin and D-dimer negative which is reassuring after more than a week of symptoms. He declines further workup or testing at this time and is eager to go home. Differential Diagnosis: Partial list of the Differential diagnosis considered include but were not limited to; anxiety, hyperglycemia, electrolyte abnormality, acidosis and although unlikely based on the history and physical exam, I also considered acute coronary disease, PE, arrhythmia, pneumonia. I discussed these differential diagnoses and the plan with the patient as well as the usual and expected course. The patient understands that the diagnosis is provisional and that in medicine we are not always correct and that further workup is often warranted. Usual and customary warnings were given. All of the patient's questions were answered. The patient was instructed to return to the emergency department should the symptoms at all worsen or return, otherwise to followup with the physician as we discussed. - Data Points Laboratory Results: Laboratory Results 08/07/17 16:17 08/07/17 08/07/17 08/07/17 18:12 17:32 17:10 WBC RBC Hgb Hct MCV MCH MCHC RDW Plt Count MPV Neut % (Auto) Lymph % (Auto) [place] % (Auto) Eos % (Auto) Baso % (Auto) Nucleat RBC Rel Count Absolute Neuts (auto) Absolute Lymphs (auto) Absolute Monos (auto) Absolute Eos (auto) Absolute Basos (auto) Absolute Nucleated RBC Immature Gran % Immature Gran # D-Dimer < 0.27 ug/mLFEU ug/mLFEU (0.00-0.50) POC Blood Source Patient Temperature POC VBG pH POC VBG pCO2 POC VBG pO2 POC VBG HCO3 POC VBG Total CO2 POC VBG Base Excess POC Mix VBG O2 Sat POC Sodium POC Potassium POC Chloride POC Total CO2 POC BUN POC Creatinine POC Glucose 131 mg/dL H mg/dL (70-100) POC Lactic Acid [place] POC Calcium POC Total Bilirubin POC AST POC ALT POC Alk Phosphatase POC Troponin I 0.00 ng/mL ng/mL (0.00-0.08) POC Total Protein POC Albumin Lipase 08/07/17 08/07/17 08/07/17 16:31 16:26 16:17 WBC RBC Hgb Hct MCV MCH MCHC RDW Plt Count MPV Neut % (Auto) Lymph % (Auto) [place] % (Auto) Eos % (Auto) Baso % (Auto) Nucleat RBC Rel Count Absolute Neuts (auto) Absolute Lymphs (auto) Absolute Monos (auto) Absolute Eos (auto) Absolute Basos (auto) Absolute Nucleated RBC Immature Gran % Immature Gran # D-Dimer POC Blood Source VENOUS Patient Temperature 37.0 DEGREES DEGREES POC VBG pH 7.56 H (7.31-7.42) POC VBG pCO2 23 mmHg L mmHg (40-44) POC VBG pO2 30 mmHg L mmHg (35-40) POC VBG HCO3 20 mEq/L L mEq/L (22-26) POC VBG Total CO2 21 mEq/L mEq/L (21-27) POC VBG Base Excess -2.0 mEq/L mEq/L (-2.5-2.5) POC Mix VBG O2 Sat 70 % % (65-75) POC Sodium 135 mEq/L mEq/L (135-145) POC Potassium 4.1 mEq/L mEq/L (3.3-5.0) POC Chloride 110.0 mEq/L mEq/L (97-110) POC Total CO2 22 mEq/L mEq/L (22-31) POC BUN 14 mg/dL mg/dL (7-23) POC Creatinine 0.6 mg/dL L mg/dL (0.7-1.3) POC Glucose 216 mg/dL H mg/dL (70-100) POC Lactic Acid [place] 2.4 mmol/L H mmol/L (0.7-2.1) POC Calcium 9.7 mg/dL mg/dL (8.5-10.4) POC Total Bilirubin 0.7 mg/dL mg/dL (0.1-1.4) POC AST 22 IU/L IU/L (17-59) POC ALT 21 IU/L IU/L (21-72) POC Alk Phosphatase 55 IU/L IU/L (38-126) POC Troponin I POC Total Protein 7.3 g/dL g/dL (6.3-8.2) POC Albumin 3.9 g/dL g/dL (3.5-5.0) Lipase 96 IU/L IU/L (23-300) 08/07/17 08/07/17 16:17 16:13 WBC 7.03 10^3/uL 10^3/uL (3.80-9.50) RBC 5.10 10^6/uL 10^6/uL (4.40-6.38) Hgb 15.6 g/dL g/dL (13.7-17.5) Hct 42.9 % % (40.0-51.0) MCV 84.1 fL fL (81.5-99.8) MCH 30.6 pg pg (27.9-34.1) MCHC 36.4 g/dL g/dL (32.4-36.7) RDW 13.2 % % (11.5-15.2) Plt Count 226 10^3/uL 10^3/uL (150-400) MPV 9.2 fL fL (8.7-11.7) Neut % (Auto) 52.0 % % (39.3-74.2) Lymph % (Auto) 38.5 % % (15.0-45.0) [place] % (Auto) 6.5 % % (4.5-13.0) Eos % (Auto) 1.7 % % (0.6-7.6) Baso % (Auto) 0.6 % % (0.3-1.7) Nucleat RBC Rel Count 0.0 % % (0.0-0.2) Absolute Neuts (auto) 3.65 10^3/uL 10^3/uL (1.70-6.50) Absolute Lymphs (auto) 2.71 10^3/uL 10^3/uL (1.00-3.00) Absolute Monos (auto) 0.46 10^3/uL 10^3/uL (0.30-0.80) Absolute Eos (auto) 0.12 10^3/uL 10^3/uL (0.03-0.40) Absolute Basos (auto) 0.04 10^3/uL 10^3/uL (0.02-0.10) Absolute Nucleated RBC 0.00 10^3/uL 10^3/uL (0-0.01) Immature Gran % 0.7 % % (0.0-1.1) Immature Gran # 0.05 10^3/uL 10^3/uL (0.00-0.10) D-Dimer POC Blood Source Patient Temperature POC VBG pH POC VBG pCO2 POC VBG pO2 POC VBG HCO3 POC VBG Total CO2 POC VBG Base Excess POC Mix VBG O2 Sat POC Sodium POC Potassium POC Chloride POC Total CO2 POC BUN POC Creatinine POC Glucose 242 mg/dL H mg/dL (70-100) POC Lactic Acid [place] POC Calcium POC Total Bilirubin POC AST POC ALT POC Alk Phosphatase POC Troponin I POC Total Protein POC Albumin Lipase Medications Given: Discontinued Medications Sodium Chloride (Ns) 1,000 mls @ 1,000 mls/hr IV EDNOW ONE PRN Reason: Protocol Stop: 08/07/17 17:13 Last Admin: 08/07/17 16:20 Dose: 1,000 mls Point of Care Test Results: Chemistry 08/07/17 08/07/17 08/07/17 18:12 17:32 16:31 POC Sodium 135 mEq/L mEq/L (135-145) POC Potassium 4.1 mEq/L mEq/L (3.3-5.0) POC Chloride 110.0 mEq/L mEq/L (97-110) POC Total CO2 22 mEq/L mEq/L (22-31) POC BUN 14 mg/dL mg/dL (7-23) POC Creatinine 0.6 mg/dL L mg/dL (0.7-1.3) POC Glucose 131 mg/dL H mg/dL 216 mg/dL H mg/dL (70-100) (70-100) POC Calcium 9.7 mg/dL mg/dL (8.5-10.4) POC Total Bilirubin 0.7 mg/dL mg/dL (0.1-1.4) POC AST 22 IU/L IU/L (17-59) POC ALT 21 IU/L IU/L (21-72) POC Alk Phosphatase 55 IU/L IU/L (38-126) POC Troponin I 0.00 ng/mL ng/mL (0.00-0.08) POC Total Protein 7.3 g/dL g/dL (6.3-8.2) POC Albumin 3.9 g/dL g/dL (3.5-5.0) 08/07/17 16:13 POC Sodium POC Potassium POC Chloride POC Total CO2 POC BUN POC Creatinine POC Glucose 242 mg/dL H mg/dL (70-100) POC Calcium POC Total Bilirubin POC AST POC ALT POC Alk Phosphatase POC Troponin I POC Total Protein POC Albumin Blood Gas/Lactic Acid-Arterial 08/07/17 16:26 POC Blood Source VENOUS Blood Gas/Lactic Acid-Venous 08/07/17 16:26 POC VBG pH 7.56 H (7.31-7.42) POC VBG pCO2 23 mmHg L mmHg (40-44) POC VBG pO2 30 mmHg L mmHg (35-40) POC VBG HCO3 20 mEq/L L mEq/L (22-26) POC VBG Total CO2 21 mEq/L mEq/L (21-27) POC VBG Base Excess -2.0 mEq/L mEq/L (-2.5-2.5) POC Mix VBG O2 Sat 70 % % (65-75) POC Lactic Acid [place] 2.4 mmol/L H mmol/L (0.7-2.1) Departure - Departure Disposition: Home, Routine, Self-Care Clinical Impression: Hyperglycemia due to type 2 diabetes mellitus Qualifiers: Diabetes mellitus intermediate insulin use: without intermediate use Qualified Code(s ): E11.65 - Type 2 diabetes mellitus with hyperglycemia Condition: Fair Instructions: Diabetic Hyperglycemia (ED) Referrals: Andi Meadows DO [Primary Care Provider] - As per Instructions
[2017-08-07 17:10] LABS: PLATELET COUNT 226 10^3/uL (150-400)
--- NOTE | 2017-08-07 17:23 | CPEKG ---
Heart Rate: 59 RR Interval: 1017 P-R Interval: 164 QRSD Interval: 98 QT Interval: 396 QTC Interval: 393 P [place]: 53 QRS [place]: 72 T Wave [place]: 42 EKG Severity - NORMAL ECG - EKG Impression: SINUS RHYTHM Electronically Signed By: Florian Sen 07-Aug-2017 17:37:28
[2017-08-07 18:32] VITALS: BP 118/62
== END 2017-08-07 18:30 | disposition home or self-care (01) ==
LOC: CED 16:03
DX: E11.65 Type 2 diabetes mellitus with hyperglycemia (principal); E86.9 Volume depletion, unspecified; Z79.84 Long term (current) use of oral hypoglycemic drugs; Z87.891 Personal history of nicotine dependence
CPT/HCPCS: 71046-PO; 80053-PO; 83605-PO; 84484-PO